=== PATIENT | female | born 1950 | race Caucasian/White ===

== ENCOUNTER 2018-05-11 13:10 | Emergency (ER) | payer OTHER ==
[~2018-05-11] VITALS: Ht 152.4 cm; Wt 58.1 kg
[~2018-05-11 13:10] MED LIST: ALBU.083IS; ALBU2SYA; ALPR.5 PO; AMOX250; ASPI325 PO; BUDE6HFA INH; CELE200 PO; CEPH250A; CIPR500 PO; CITA20 PO; Cipro500 MG PO; DOCU100 PO; DOXY100 PO; FENO145 PO; FLUSAL2505; FURO20 PO; GABA300 PO; GABA600 PO; HCT PO; HYDACE10B; HYDACE10B PO; HYDACE5 PO; HYDCHL12.5 PO; HYDMOR2 PO; IBUP800; LEVA.63IS IH; LEVA1.25 IH; LEVFLO500 PO; LISI20 PO; LOSA50 PO; LOSARTAN PO; LOSHYD100 PO; METO100 PO; METO100ER PO; MONT10T; OLME20 PO; OMEGA PO; OMEP40CA12 PO; ONDA4ODT MM; OXYACE5T PO; OXYC10ER PO; OXYC10TA19 PO; OXYC1TAB11 PO; OXYC80ER; PANT40; PANT40 PO; POTCHL10ER PO; PRAV20 PO; PRAVASTATIN PO; PRED20 PO; PROC25S PR; PROM25 PO; Pravastatin Sod40 MG PO; Prednisone20 MG PO; QUET25 PO; RXOXYACE PO; Stool Softener100 MG PO; TELM20; TELM80; TELM80 PO; ZOLP10 PO; Zofran Odt8 MG SL; Zofran8 MG PO; [UNRECOGNIZED DRUG - CODE]
[2018-05-11] MEDS ORDERED: TRAM50 PO (15:05)
[2018-05-11] MEDS ORDERED: SERT25 PO (15:07)
[2018-05-11] MEDS ORDERED: Lopressor 25 mg25 MG PO (15:07)
[2018-05-11] MEDS ORDERED: QUETIAPINE FUM150 MG PO (15:07)
[2018-05-11] MEDS ORDERED: BUSP10 PO (15:09)
[2018-05-11] MEDS ORDERED: Zantac150 MG PO (15:09)
[2018-05-11] MEDS ORDERED: LOSARTAN POTAS100 MG PO (15:09)
[2018-05-11 15:19] LABS: BASOPHILS ABSOLUTE AUTO 0.04 K/mm3 (0.00-0.23); BASOPHILS PERCENT AUTO 1 % (0-2); EOSINOPHILS PERCENT AUTO 1 % (0-6); Hematocrit 32.4 % (33.0-51.0); Hemoglobin 10.3 g/dL (11.5-16.0); IMMATURE GRAN ABSOLUTE AUTO 0.03 K/mm3 (0.00-0.10); IMMATURE GRAN PERCENT AUTO 0 % (0-1); LYMPHOCYTES ABSOLUTE AUTO 2.68 K/mm3 (0.84-5.20); LYMPHOCYTES PERCENT AUTO 31 % (21-46); MONOCYTES ABSOLUTE AUTO 0.76 K/mm3 (0.16-1.47); MONOCYTES PERCENT AUTO 9 % (4-13); Mean Corpuscular HGB 30.7 pg (26.0-34.0); Mean Corpuscular HGB Conc 31.8 g/dL (31.5-36.5); Mean Corpuscular Volume 96 fL (80-100); Mean Platelet Volume 9.1 fL (9.1-12.4); NEUTROPHILS ABSOLUTE AUTO 5.02 K/mm3 (1.96-9.15); NEUTROPHILS PERCENT AUTO 58 % (41-73); Platelet Count 265 K/mm3 (150-400); RDW Coefficient Variation 15.3 % (11.7-14.2); RDW Standard Deviation 54.4 fL (35.1-46.3); Red Blood Cell Count 3.36 M/mm3 (3.80-5.20); White Blood Cell Count 8.63 K/mm3 (4.00-11.30)
[2018-05-11 15:43] LABS: Albumin, Blood 3.3 g/dL (3.4-5.0); Albumin/Globulin Ratio 0.8 (0.8-1.8); Bilirubin, Total 0.5 mg/dL (0.1-1.0); Bun/Creatinine Ratio 13.7 (12.0-20.0); Calcium, Blood 9.3 mg/dL (8.5-10.1); Creatinine, Blood 1.17 mg/dL (0.40-1.00); Globulin, Blood 4.2 g/dL (2.2-4.0); Potassium, Blood 4.3 mmol/L (3.5-5.5); Total Protein, Blood 7.5 g/dL (6.4-8.2)
[2018-05-11] MEDS ORDERED: Bactrim Ds Tab1 EACH PO (16:42)
[2018-05-11] MEDS ORDERED: Norco 5-325 Ta1 EACH PO (16:42)
== END 2018-05-11 17:44 | disposition home or self-care (01) ==
LOC: ER 13:10
PROVIDERS: Emergency Medicine
DX: L03.317 Cellulitis of buttock (principal); J44.9 Chronic obstructive pulmonary disease, unspecified; I10 Essential (primary) hypertension; F17.210 Nicotine dependence, cigarettes, uncomplicated; Z88.5 Allergy status to narcotic agent; Z88.2 Allergy status to sulfonamides; Z79.899 Other long term (current) drug therapy
CPT/HCPCS: 36415; 72193; 80053; 85025; 87070; 87075; 87077; 87147; 87186; 87205; 96365-59; 96375-59; 99284-25; J1885; J2405; J3010; J3370; J7030; J7050; Q9967

== ENCOUNTER → 2018-05-22 | Outpatient (CLI) | payer OTHER ==
[~2018-05-22] MED LIST changes: +BUSP10 PO; +Bactrim Ds Tab1 EACH PO; +LOSARTAN POTAS100 MG PO; +Lopressor 25 mg25 MG PO; +Norco 5-325 Ta1 EACH PO; +QUETIAPINE FUM150 MG PO; +SERT25 PO; +TRAM50 PO; +Zantac150 MG PO
[2018-05-22 14:31] LABS: Appearance, Urine Clear (Clear); Bilirubin, Urine Neg (Neg); Blood, Urine Neg (Neg); Color, Urine Yellow (P-Yellow); Glucose Qualitative, Urine Neg (Neg); Ketones, Urine Neg (Neg); Leukocyte Esterase, Urine Neg (Neg); Nitrite, Urine Neg (Neg); Protein, Urine Neg (Neg); Urobilinogen, Urine NORM (Normal)
[2018-05-22 15:02] LABS: Creatinine, Urine Random 37.6 mg/dL (27.00-270.00); Protein, Urine Random 8.5 mg/dL (0.0-11.9)
== END | disposition home or self-care (01) ==
LOC: LAB 14:04 → LAB SHORT 14:04
PROVIDERS: Internal Medicine
DX: I12.9 Hypertensive chronic kidney disease with stage 1 through stage 4 chronic kidney disease, or unspecified chronic kidney disease (principal); N18.2 Chronic kidney disease, stage 2 (mild)
CPT/HCPCS: 81003; 82570; 84156

== ENCOUNTER 2018-07-05 17:27 | Observation (INO) | payer OTHER ==
[~2018-07-05] VITALS: Ht 165.1 cm; Wt 57.3 kg
[2018-07-05] MEDS ORDERED: Cetirizine HCl10 MG PO (17:42)
[2018-07-05 18:02] LABS: BASOPHILS ABSOLUTE AUTO 0.04 K/mm3 (0.00-0.23); BASOPHILS PERCENT AUTO 1 % (0-2); EOSINOPHILS ABSOLUTE AUTO 0.05 K/mm3 (0.00-0.68); EOSINOPHILS PERCENT AUTO 1 % (0-6); Hematocrit 40.3 % (33.0-51.0); Hemoglobin 13.2 g/dL (11.5-16.0); IMMATURE GRAN ABSOLUTE AUTO 0.01 K/mm3 (0.00-0.10); IMMATURE GRAN PERCENT AUTO 0 % (0-1); LYMPHOCYTES ABSOLUTE AUTO 2.87 K/mm3 (0.84-5.20); LYMPHOCYTES PERCENT AUTO 41 % (21-46); MONOCYTES ABSOLUTE AUTO 0.45 K/mm3 (0.16-1.47); MONOCYTES PERCENT AUTO 6 % (4-13); Mean Corpuscular HGB 30.7 pg (26.0-34.0); Mean Corpuscular HGB Conc 32.8 g/dL (31.5-36.5); Mean Corpuscular Volume 94 fL (80-100); Mean Platelet Volume 8.8 fL (9.1-12.4); NEUTROPHILS ABSOLUTE AUTO 3.67 K/mm3 (1.96-9.15); NEUTROPHILS PERCENT AUTO 52 % (41-73); Platelet Count 227 K/mm3 (150-400); RDW Coefficient Variation 15.3 % (11.7-14.2); RDW Standard Deviation 52.7 fL (35.1-46.3); White Blood Cell Count 7.09 K/mm3 (4.00-11.30)
[2018-07-05 18:24] LABS: Alanine Aminotransfer (ALT/SGP 17 U/L (12-78); Albumin, Blood 4.1 g/dL (3.4-5.0); Albumin/Globulin Ratio 1.1 (0.8-1.8); Alk Phos 88 U/L (50-136); Anion Gap 7 mmol/L (6-16); Aspartate Aminotrans (AST/SGOT 18 U/L (12-37); Bilirubin, Total 0.3 mg/dL (0.1-1.0); Blood Urea Nitrogen 15 mg/dL (8-24); Bun/Creatinine Ratio 14.4 (12.0-20.0); CO2, Blood 30 mmol/L (21-32); Calcium, Blood 9.4 mg/dL (8.5-10.1); Chloride, Blood 104 mmol/L (98-108); Creatinine, Blood 1.04 mg/dL (0.40-1.00); Globulin, Blood 3.9 g/dL (2.2-4.0); Glomerular Filtration Rate 56 (60-); Glucose, Blood 99 mg/dL (70-99); Potassium, Blood 3.6 mmol/L (3.5-5.5); Sodium, Blood 141 mmol/L (136-145); Troponin I <0.015 ng/mL (0.000-0.040)
[2018-07-05] MEDS ORDERED: GABA600 PO (19:48)
[2018-07-05] MEDS ORDERED: AMLO5 PO (19:51)
[2018-07-05] MEDS ORDERED: Ferrous Sulfat325 M2 PO (19:52)
[2018-07-05] MEDS ORDERED: ALBU2.5V5 NEB (20:10)
[2018-07-05] MEDS ORDERED: IPRATROPIUM BROMIDE NEB (20:12)
--- NOTE | 2018-07-06 06:40 | NUR ---
END OF SHIFT SUMMARY ASSUMED CARE OF PT FROM ED. PT TO UNIT, BP 165/85. HAS DECREASED TO MOST RECENT 128/75. PT HAS NOT REQUIRED ANY PRN BP MEDICATIONS. PT HAS REMAINED NON HYPERTENSIVE POST TRANSFER TO PCU. MRSA SWABS OBTAINED AND SENT TO LAB. VSS T/O SHIFT. PT HAS STRUGGLED WITH HEADACHE DESPITE MEDICATING WITH TYLENOL AND OXYCODONE. PT HAS BEEN ON AND OFF ASLEEP T/O SHIFT, HAS REQUIRED MULTIPLE MEDS FOR HEADACHE. CALL LIGHT WITHIN REACH. BED IN LOWEST POSITION. WILL CONTINUE TO MONITOR PT UNTIL SHIFT CHANGE.
--- NOTE | 2018-07-06 16:36 | NUR ---
SHIFT SUMMARY NO ACUTE CHANGES THIS SHIFT. PT BLOOD PRESSURE IMPROVING. PT COMPLAINS OF HEADACHE MOST OF SHIFT AND IS RECEIVING TYLENOL AND OXYCODONE FOR PAIN. DENIES N/V OR SOB. IV IS SL. PT INDEPENDENT IN ROOM WITH PERSONAL WALKER. IF PT CONTINUES TO DO WELL T/O NIGHT, PLAN IS FOR PT TO GO HOME. PT USES CALL LIGHT APPROPRIATELY. WILL CONT TO MONITOR UNTIL REPORT TO SABRA LLAMAS.
--- NOTE | 2018-07-06 17:37 | NUR ---
PT WANTING TO GO OUTSIDE WITH CAREGIVER. THIS RN EDUCATED CAREGIVER AND PT ON NO SMOKING POLICY. EDUCATED ON THE RISKS OF SMOKING AND BOTH VERBALIZED AN UNDERSTANDING.
--- NOTE | 2018-07-06 22:53 | NUR ---
ASSUMED PT CARE AT 1915 PT LYING IN BED WITH LIGHTS DIMMED D/T HEADACHE. PT STATES HER HEADACHE IS 8/10. MEDICATED WITH TYLENOL AND OXY PER ORDERS. PT IS ALERT AND ORIENTED TO PERSON, PLACE, TIME, AND SITUATION. VERY PLEASANT AND COOPERATIVE WITH CARE. BLOOD PRESSURE HAS REMAINED 150'S SYSTOLIC; PT STATES HER HEADACHE HAS BEEN BOTHERING HER FOR THE LAST COUPLE OF DAYS. REMINDED PT OF ELEVATED BP'S CAUSING THAT; DEMONSTRATED UNDERSTANDING. NO FAMILY AT BEDSIDE AT THIS TIME. PT WEARY OF LOVENOX INJECTION; EDUCATED REGARDING INDICATION; PT THEN RAISED CONCERN STATING SHE ISN'T ANY MORE ACTIVE AT HOME THAN SHE IS HERE AND MENTIONED BRINGING IT UP TO HER DOCTOR. SHE ALSO MENTIONED HER LEGS CAUSING HER MORE PROBLEMS AND WANTED TO BE SURE I WAS AWARE THAT SHE HAD RESTLESS LEG SYNDROME. PT STATES SHE DOESN'T TAKE ANYTHING MEDICATION MELARA FOR HER RLS, BUT STATED SHE WOULD BRING IT UP WITH HER DOCTOR BECAUSE THEY ARE CAUSING HER MORE PAIN AND ISSUES. CALL LIGHT LEFT WITHIN REACH; PT ABLE TO MAKE HER NEEDS KNOWN AND REPOSITION HERSELF IN BED.
[2018-07-07 04:18] LABS: Hematocrit 38.9 % (33.0-51.0); Hemoglobin 12.9 g/dL (11.5-16.0); Mean Corpuscular HGB 30.8 pg (26.0-34.0); Mean Corpuscular HGB Conc 33.2 g/dL (31.5-36.5); Mean Corpuscular Volume 93 fL (80-100); Mean Platelet Volume 9.2 fL (9.1-12.4); Platelet Count 187 K/mm3 (150-400); RDW Coefficient Variation 15.6 % (11.7-14.2); RDW Standard Deviation 53.1 fL (35.1-46.3); Red Blood Cell Count 4.19 M/mm3 (3.80-5.20)
[2018-07-07 04:35] LABS: Albumin, Blood 3.3 g/dL (3.4-5.0); Anion Gap 8 mmol/L (6-16); Blood Urea Nitrogen 37 mg/dL (8-24); Bun/Creatinine Ratio 26.6 (12.0-20.0); CO2, Blood 24 mmol/L (21-32); Calcium, Blood 8.5 mg/dL (8.5-10.1); Chloride, Blood 108 mmol/L (98-108); Creatinine, Blood 1.39 mg/dL (0.40-1.00); Glomerular Filtration Rate 40 (60-); Glucose, Blood 89 mg/dL (70-99); Phosphorus, Blood 4.4 mg/dL (2.5-4.9); Potassium, Blood 4.3 mmol/L (3.5-5.5); Sodium, Blood 140 mmol/L (136-145)
--- NOTE | 2018-07-07 05:45 | NUR ---
END OF SHIFT SUMMARY NO SIGNIFICANT CHANGES T/O NIGHT. PT CONTINUES TO C/O SEVERE 8/10 HEADACHE PAIN. MEDICATED WITH SCHEDULED APAP AND PRN OXY PER ORDERS. PT CLAIMS SHE FEELS SOME RELIEF, BUT THE HEADACHE COMES BACK WITH A "VENGEANCE". HELD HYDRALAZINE DOSE TWICE D/T SBP BEING LESS THAN 140. PT STATES OVERALL SHE FEELS BETTER AND HIS READY TO GO HOME. CALL LIGHT WITHIN REACH; ABLE TO MAKE NEEDS KNOWN. WILL CONTINUE TO MONITOR UNTIL REPORT HIS HANDED OFF TO ONCOMING RN.
--- NOTE | 2018-07-07 14:04 | NUR ---
Ann is cheerful in conversation, but states ongoing headache is bothersome. States Tylenol is not effective at all. Given narcotic pain relief as ordered PRN. She is lying in bed, room remains darkened, but she appears non-anxious, and readily engages in informal conversation with me and with her daughter. She appears not to be in distress, but in good humor. Blood pressure rechecked at this time; monitoring it closely. At this time, systolic pressure is 144 mmHg.
--- NOTE | 2018-07-07 17:15 | NUR ---
The pt is still c/o headache. States that she was up in the room walking around, doing some leg exercises and felt well, but now her headache has returned. Noted systolic blood pressure 163 just now at the time when her apresoline is scheduled, so that was given, and she will continue to be monitored. telephone report was given to MURIEL Ravi, in anticipation of transfer of pt to room 360.
--- NOTE | 2018-07-07 19:30 | NUR ---
SHIFT SUMMARY PATIENT TRANSFERED FROM PCU. A&O, INDEPENDENT IN THE ROOM. C/O 09/16 HEADACHE PAIN. RN MEDICATED PER E APR. CALL LIGHT WITHIN REACH. RN AGREES WITH ASSESSMENT OF PCU NURSE. REPORT GIVEN TO ONCOMING RN.
--- NOTE | 2018-07-08 06:14 | NUR ---
NOC SHIFT SUMMARY PT IS PLEASANT AND COOPERATIVE WITH CARE THIS NIGHT. SHE HAS COMPLAINED OF A HEADACHE 09/16 THAT HAS BEEN ONGOING SHE STATES SINCE SHE WAS ADMITTED. TREATED PER EMAR. NAUSEA ALSO TREATED PER EMAR. PT CURRENTLY SLEEPING AND APPEARS IN NO ACUTE DISTRES. DAUGHTER IN ROOM WITH HER. VSS. WILL CONTINUE TO MONITOR.
[2018-07-08] MEDS ORDERED: METO5A PO (10:25)
[2018-07-08] MEDS ORDERED: HYDR10 PO (10:26)
[2018-07-08] MEDS ORDERED: OXYC5 PO (10:27)
--- NOTE | 2018-07-08 10:59 | NUR ---
PT DISCHARGED PT DISCHARGED IN STABLE CONDITION WITH VSS. PT EDUCATED ON DC INSTRUCTIONS. PT DENIES FURTHER NEED FOR INSTRUCTION. PT WHEELED OUT BY MURIEL LEVIN & DRIVEN HOME BY DAUGHTER. SCRIPT SENT WITH PT.
== END 2018-07-08 10:59 | disposition home or self-care (01) ==
LOC: ER 17:27 → PCU 17:28 → MEDS 07-07 17:42 → ENPENDDIS 07-08 10:00 → MEDS 07-08 10:59
PROVIDERS: Emergency Medicine; Internal Medicine; ADMIT Internal Medicine
DX: I16.0 Hypertensive urgency (principal); I12.9 Hypertensive chronic kidney disease with stage 1 through stage 4 chronic kidney disease, or unspecified chronic kidney disease; N18.3 Chronic kidney disease, stage 3 (moderate); I67.9 Cerebrovascular disease, unspecified; J44.9 Chronic obstructive pulmonary disease, unspecified; I25.10 Atherosclerotic heart disease of native coronary artery without angina pectoris; E78.5 Hyperlipidemia, unspecified; E03.9 Hypothyroidism, unspecified; K21.9 Gastro-esophageal reflux disease without esophagitis; F17.210 Nicotine dependence, cigarettes, uncomplicated; F41.1 Generalized anxiety disorder; M79.7 Fibromyalgia; Z79.01 Long term (current) use of anticoagulants; Z79.899 Other long term (current) drug therapy; Z88.2 Allergy status to sulfonamides; Z88.5 Allergy status to narcotic agent; Z88.1 Allergy status to other antibiotic agents
CPT/HCPCS: 36415; 70450; 71046; 80053; 80069; 84443; 84484; 85025; 85027; 85651; 87081; 93005; 93010; 96372; 96374; 96375; 96376; 97162; 97530; 99285-25; G0378; J0360; J1200; J1650; J2405; J2765; J2920; J3010

== ENCOUNTER 2019-01-29 14:25 | Observation (INO) | payer OTHER ==
[~2019-01-29] VITALS: Ht 152.4 cm; Wt 59.0 kg
[~2019-01-29 14:25] MED LIST changes: +ALBU2.5V5 NEB; +AMLO5 PO; +Cetirizine HCl10 MG PO; +Ferrous Sulfat325 M2 PO; +HYDR10 PO; +IPRATROPIUM BROMIDE NEB; +METO5A PO; +OXYC5 PO
[2019-01-29] MEDS ORDERED: OMEPRAZOLE20 MG PO ×2 (15:08→20:01)
[2019-01-29] MEDS ORDERED: ONDA4 PO ×2 (15:09→20:08)
[2019-01-29 15:34] LABS: BASOPHILS ABSOLUTE AUTO 0.06 K/mm3 (0.00-0.23); BASOPHILS PERCENT AUTO 1 % (0-2); EOSINOPHILS ABSOLUTE AUTO 0.22 K/mm3 (0.00-0.68); EOSINOPHILS PERCENT AUTO 3 % (0-6); Hematocrit 40.3 % (33.0-51.0); Hemoglobin 12.9 g/dL (11.5-16.0); IMMATURE GRAN ABSOLUTE AUTO 0.03 K/mm3 (0.00-0.10); IMMATURE GRAN PERCENT AUTO 0 % (0-1); LYMPHOCYTES ABSOLUTE AUTO 3.21 K/mm3 (0.84-5.20); LYMPHOCYTES PERCENT AUTO 37 % (21-46); MONOCYTES PERCENT AUTO 8 % (4-13); Mean Corpuscular HGB 31.7 pg (26.0-34.0); Mean Corpuscular Volume 99 fL (80-100); Mean Platelet Volume 9.1 fL (9.1-12.4); NEUTROPHILS ABSOLUTE AUTO 4.36 K/mm3 (1.96-9.15); NEUTROPHILS PERCENT AUTO 51 % (41-73); Platelet Count 303 K/mm3 (150-400); RDW Coefficient Variation 15.2 % (11.7-14.2); RDW Standard Deviation 56.4 fL (35.1-46.3); Red Blood Cell Count 4.07 M/mm3 (3.80-5.20); White Blood Cell Count 8.58 K/mm3 (4.00-11.30)
[2019-01-29 15:48] LABS: International Normalized Ratio 0.97; Prothrombin Time Results 10.3 Sec (9.7-11.5)
[2019-01-29 15:54] LABS: Alanine Aminotransfer (ALT/SGP 14 U/L (12-78); Albumin, Blood 3.6 g/dL (3.4-5.0); Albumin/Globulin Ratio 0.9 (0.8-1.8); Alk Phos 93 U/L (50-136); Anion Gap 6 mmol/L (6-16); Aspartate Aminotrans (AST/SGOT 16 U/L (12-37); Bilirubin, Total 0.2 mg/dL (0.1-1.0); Blood Urea Nitrogen 19 mg/dL (8-24); CO2, Blood 25 mmol/L (21-32); Calcium, Blood 8.9 mg/dL (8.5-10.1); Chloride, Blood 107 mmol/L (98-108); Creatinine, Blood 1.12 mg/dL (0.40-1.00); Globulin, Blood 3.9 g/dL (2.2-4.0); Glomerular Filtration Rate 51 (60-); Glucose, Blood 111 mg/dL (70-99); Potassium, Blood 4.5 mmol/L (3.5-5.5); Sodium, Blood 138 mmol/L (136-145); Total Protein, Blood 7.5 g/dL (6.4-8.2); Troponin I <0.015 ng/mL (0.000-0.040)
[2019-01-29] MEDS ORDERED: AMLODIPINE BESYL5 MG PO (17:00)
[2019-01-29] MEDS ORDERED: Pravachol40 MG PO (17:00)
[2019-01-29] MEDS ORDERED: METOPROLOL TART25 MG PO (17:01)
[2019-01-29] MEDS ORDERED: ZYRTEC10 M2 PO (17:01)
[2019-01-29] MEDS ORDERED: ACYC800 PO (19:43)
[2019-01-29] MEDS ORDERED: ALBU2.5V5 INH (19:45)
--- NOTE | 2019-01-29 19:45 | NUR ---
ADMIT NOTE RECEIVED REPORT FROM MURIEL HUNTER IN ED. PT TO ROOM VIA DUSTIN AT 1900. PT ORIENTED TO ROOM AND CALL LIGHT. PT EDUCATED ON HIGH FALL RISK, THE USE OF THE BED ALARM AND CALL LIGHT. PT TRANSFERS SBA TO BED. MRSA CLEARANCE SWABS COLLECTED, AND SENT TO LAB. VSS. REPORT GIVEN TO MAIKEL LLAMAS.
[2019-01-29] MEDS ORDERED: Ipratropium Bro30 ML INH (19:58)
[2019-01-29] MEDS ORDERED: Zantac150 MG PO (20:06)
[2019-01-30 04:45] LABS: Hematocrit 37.2 % (33.0-51.0); Hemoglobin 12.1 g/dL (11.5-16.0); Mean Corpuscular HGB 31.9 pg (26.0-34.0); Mean Corpuscular HGB Conc 32.5 g/dL (31.5-36.5); Mean Corpuscular Volume 98 fL (80-100); Mean Platelet Volume 9.2 fL (9.1-12.4); Platelet Count 249 K/mm3 (150-400); RDW Coefficient Variation 15.2 % (11.7-14.2); RDW Standard Deviation 54.8 fL (35.1-46.3); Red Blood Cell Count 3.79 M/mm3 (3.80-5.20); White Blood Cell Count 7.85 K/mm3 (4.00-11.30)
[2019-01-30 05:13] LABS: Bun/Creatinine Ratio 19.3 (12.0-20.0); Calcium, Blood 8.7 mg/dL (8.5-10.1); Creatinine, Blood 1.09 mg/dL (0.40-1.00); Potassium, Blood 4.1 mmol/L (3.5-5.5)
--- NOTE | 2019-01-30 05:32 | NUR ---
SHIFT SUMARY PT SLEEPING IN ROOM COMFORTABL AT THIS TIME. NO ACUTE CHNAGES IN STATUS SINCE ARRIVAL FROM ED. PT HAS SLEPT WELL T/O NIGHT AND USED CALL LIGHT APPROPRIATELY. DENIED CP OR SOB. RESP EVEN UNLABORED ON RA W/ SATS >92%. PT REPORTED PAIN TO R EAR, PT MEDICATED PER EMAR FOR PAIN AND GIVEN K PAD FOR HEAT TO EAR AND COMFORT. DENIES OTHER NEEDS. MRSA CLEARENCE SWABS SENT. CALL LIGHT IN REACH.
--- NOTE | 2019-01-30 07:00 | NUR ---
REPORT AND WALKING ROUNDS WITH AYANA LLAMAS. ASSUMING PT CARE.
--- NOTE | 2019-01-30 07:30 | NUR ---
VSS. ASSESSMENT CHARTED. PT NPO AT THIS TIME. AWAITING DR CARLOS SHIELDS. CALL LIGHT IN REACH. PT ALERT AND ORIENTED. ABLE TO GET TO RR WITH MINIMAL TO NO ASSISTANCE.
--- NOTE | 2019-01-30 07:40 | NUR ---
DR GONZALEZ TO ROOM. PLAN TO STOP BETABLOCKERS, GET ECHO DONE, GET PT SET UP FOR CARDIAC MONITORING. NO PACEMAKER PLACEMENT NEEDED AT THIS TIME. PT NEEDS TO FOLLOWUP WITH DR GONZALEZ IN CLINIC. PT ABLE TO EAT. BREAKFAST PROVIDED.
--- NOTE | 2019-01-30 09:00 | NUR ---
DR RO TO ROOM.
--- NOTE | 2019-01-30 09:38 | NUR ---
PT UP TO RR INDEPENDENTLY. PT MEDICATED PER EMAR WITH SCHEDULED MEDS AND PRN PAIN MEDS (DUE TO C/O HEADACHE).
--- NOTE | 2019-01-30 13:30 | NUR ---
PHYSICAL THERAPY TO ROOM.
--- NOTE | 2019-01-30 14:58 | NUR ---
PT MEDICATED WITH SCHEDULED MEDS AND PRN MEDS. DOOR SHUT FOR PT PRIVACY AND NOISE REDUCTION. CALL LIGHT IN REACH.
--- NOTE | 2019-01-30 15:30 | NUR ---
[facility] STAFF TO ROOM FOR ECHO.
--- NOTE | 2019-01-30 16:12 | NUR ---
PT TALKING ON PHONE. DENIES NEEDS. VSS.
--- NOTE | 2019-01-30 16:16 | NUR ---
Echocardiogram completed.
--- NOTE | 2019-01-30 17:09 | NUR ---
SHIFT SUMMARY PT REMAINED ALERT AND ORIENTED THROUGHOUT SHIFT. VSS STABLE. PT TOLERATING DIET. PT HAD MINIMAL DIZZINESS TODAY WITH MOVEMENT. ABLE TO COMMUNICATE NEEDS AND USE CALL LIGHT APPROPRIATELY. PT STATES INTERMITTENT LOWER ABD CRAMPING THAT RELIEVES SPONTANEOUSLY TODAY. PT ECHO DONE THIS AFTERNOON SHOWED NO SIGNIFICANT CHANGE FROM PREVIOUS. PER DR GONZALEZ PLAN TO DC PT WITH ZIO MONITORING DEVICE. PT STILL C/O PAIN TO HEAD AND RIGHT EAR. PAIN MANAGED ADEQUATELY WITH OXYCODONE. WILL REPORT TO ONCOMING SHIFT. WILL CONTINUE TO ADDRESS PT NEEDS AND MONITOR UNTIL SHIFT CHANGE.
--- NOTE | 2019-01-30 18:20 | NUR ---
PT C/O NAUSEA. MEDICATED WITH ZOFRAN PER EMAR.
--- NOTE | 2019-01-30 22:01 | NUR ---
ASSUMED CARE APPROXIMATELY 1900; PT A&O; VSS; PT ON RA; O2 SATS>94; PT CALM AND COOPERATIVE W/ CARE; C/O EAR AND SIDE OF FACE PAIN; MEDICATED PER EMAR; HEAT PAD OFFERED; PT DENIES CHEST PAIN; DENIES NEEDS AT THIS TIME; CALL LIGHT IN REACH; BED IN LOWEST POSITION; WILL CONTINUE TO MONITOR CLOSELY
--- NOTE | 2019-01-31 07:52 | NUR ---
SHIFT SUMMARY PT A&O; COMPLIANT W/ CARE; PT ON RA; O2 SATS >93; DENIES CHEST PAIN; C/O R EAR AND R FACE PAIN WELL CHRONIC RESTLESS LEG SYNDROME; PT REPOSITIONED AND MEDICATED PER EMAR; PT SLEPT WELL IN BETWEEN INTERVENTIONS; CALL LIGHT IN REACH; BED IN LOWEST POSITION; REPORT GIVEN TO DAY SHIFT RN
--- NOTE | 2019-01-31 11:27 | NUR ---
Called nursing supervisor felling bucking Bang Moe to request set up for ZIO patch before discharge.
[2019-01-31] MEDS ORDERED: GABA300 PO (12:25)
[2019-01-31] MEDS ORDERED: DOXY100 PO (12:27)
[2019-01-31] MEDS ORDERED: MECL12.5 PO (12:29)
[2019-01-31] MEDS ORDERED: Ocuflox5 ML RIGHTEAR (12:33)
[2019-01-31] MEDS ORDERED: PRED20 PO (12:34)
--- NOTE | 2019-01-31 14:59 | NUR ---
DISCHARGE SUMMARY PT A&Ox4. CALM AND COOPERATIVE WITH CARE. ANXIOUS AT TIMES. PT RESTING IN BED DURING SHIFT, APPEARS TO BE SLEEPING INTERMITTENTLY. UP WITH SBA IN ROOM. PT REPORTING RIGHT EARS AND JAW PAIN AND CHRONIC LEG PAIN, MEDICATED x1 WITH ROXICODONE WITH POSITIVE RESULTS. PT DENEIS SOB AND NAUSEA. PT REPORT DIZZINESS THIS AM, MEDICATED WITH SCHEDULE ANTIVERT WITH POSITIVE RESULTS. HR 50-70'S DURING SHIFT. FEEDER WORKER POWER UNIT OPERATOR TO ROOM TO PLACE ZIO PATCH, EDUCATED ON HOW TO CARE FOR AT HOMES. VSS. NO OTHER ACUTE CHANGES NOTED. PT EDUCATED ON DISCHARGE INSTRUCTIONS, MEDICTIONS AND FOLLOW UP APPOINTMENTS. PT EDUCATED ON SMOKING CESSATION AND HOME SAFETY. PRESCRIPTIONS FAXED TO [facility] PER PT REQUEST. PT LEFT ROOM AT 1455 VIA WHEELCHAIR. PT STABLE UPON DISCAHRGE.
== END 2019-01-31 14:55 | disposition home or self-care (01) ==
LOC: ER 14:25 → PCU 16:58 → ER 16:58 → PCU 16:58
PROVIDERS: Emergency Medicine; ADMIT Internal Medicine
DX: R00.1 Bradycardia, unspecified (principal); T50.905A Adverse effect of unspecified drugs, medicaments and biological substances, initial encounter; R55 Syncope and collapse; R07.89 Other chest pain; M79.7 Fibromyalgia; J44.9 Chronic obstructive pulmonary disease, unspecified; G25.81 Restless legs syndrome; I25.10 Atherosclerotic heart disease of native coronary artery without angina pectoris; F17.200 Nicotine dependence, unspecified, uncomplicated; I12.9 Hypertensive chronic kidney disease with stage 1 through stage 4 chronic kidney disease, or unspecified chronic kidney disease; N18.9 Chronic kidney disease, unspecified; H60.91 Unspecified otitis externa, right ear; Z74.09 Other reduced mobility; Z90.49 Acquired absence of other specified parts of digestive tract; Z90.710 Acquired absence of both cervix and uterus; Z96.641 Presence of right artificial hip joint; Z96.659 Presence of unspecified artificial knee joint; Z88.1 Allergy status to other antibiotic agents; Z88.2 Allergy status to sulfonamides; Z88.5 Allergy status to narcotic agent; Z88.8 Allergy status to other drugs, medicaments and biological substances; Z79.899 Other long term (current) drug therapy
CPT/HCPCS: 36415; 71045; 80048; 80053; 84443; 84484; 85025; 85027; 85610; 87081; 93005; 93010; 93306; 94640; 94760; 96365; 96366; 96375; 97116; 97162; 97530; 99285-25; G0378; J0690; J1170; J1644; J1956; J2250; J2405; J3010; J7030; J7040; J7120; J7512

== ENCOUNTER 2019-02-18 09:50 | Emergency (ER) | payer OTHER ==
[~2019-02-18] VITALS: Ht 152.4 cm; Wt 56.7 kg
[~2019-02-18 09:50] MED LIST changes: +ACYC800 PO; +ALBU2.5V5 INH; +AMLODIPINE BESYL5 MG PO; +Ipratropium Bro30 ML INH; +MECL12.5 PO; +METOPROLOL TART25 MG PO; +OMEPRAZOLE20 MG PO; +ONDA4 PO; +Ocuflox5 ML RIGHTEAR; +Pravachol40 MG PO; +ZYRTEC10 M2 PO
[2019-02-18 10:09] LABS: BASOPHILS ABSOLUTE AUTO 0.03 K/mm3 (0.00-0.23); BASOPHILS PERCENT AUTO 1 % (0-2); EOSINOPHILS ABSOLUTE AUTO 0.01 K/mm3 (0.00-0.68); EOSINOPHILS PERCENT AUTO 0 % (0-6); Hemoglobin 13.2 g/dL (11.5-16.0); IMMATURE GRAN ABSOLUTE AUTO 0.01 K/mm3 (0.00-0.10); IMMATURE GRAN PERCENT AUTO 0 % (0-1); LYMPHOCYTES ABSOLUTE AUTO 1.43 K/mm3 (0.84-5.20); LYMPHOCYTES PERCENT AUTO 22 % (21-46); MONOCYTES ABSOLUTE AUTO 0.38 K/mm3 (0.16-1.47); MONOCYTES PERCENT AUTO 6 % (4-13); Mean Corpuscular HGB 31.8 pg (26.0-34.0); Mean Corpuscular Volume 96 fL (80-100); Mean Platelet Volume 8.9 fL (9.1-12.4); NEUTROPHILS ABSOLUTE AUTO 4.56 K/mm3 (1.96-9.15); NEUTROPHILS PERCENT AUTO 71 % (41-73); Platelet Count 260 K/mm3 (150-400); RDW Coefficient Variation 14.6 % (11.7-14.2); Red Blood Cell Count 4.15 M/mm3 (3.80-5.20); White Blood Cell Count 6.42 K/mm3 (4.00-11.30)
[2019-02-18 10:22] LABS: Alanine Aminotransfer (ALT/SGP 20 U/L (12-78); Albumin, Blood 3.7 g/dL (3.4-5.0); Albumin/Globulin Ratio 0.9 (0.8-1.8); Anion Gap 5 mmol/L (6-16); Aspartate Aminotrans (AST/SGOT 26 U/L (12-37); Bilirubin, Total 0.4 mg/dL (0.1-1.0); Blood Urea Nitrogen 9 mg/dL (8-24); Bun/Creatinine Ratio 9.3 (12.0-20.0); CO2, Blood 26 mmol/L (21-32); Calcium, Blood 9.1 mg/dL (8.5-10.1); Chloride, Blood 109 mmol/L (98-108); Creatinine, Blood 0.97 mg/dL (0.40-1.00); Globulin, Blood 3.9 g/dL (2.2-4.0); Glomerular Filtration Rate >60 (60-); Glucose, Blood 120 mg/dL (70-99); Potassium, Blood 4.2 mmol/L (3.5-5.5); Sodium, Blood 140 mmol/L (136-145); Total Protein, Blood 7.6 g/dL (6.4-8.2)
[2019-02-18 10:25] LABS: Alk Phos 86 U/L (50-136); Troponin I <0.015 ng/mL (0.000-0.040)
[2019-02-18] MEDS ORDERED: Ultram50 MG PO (12:37)
[2019-02-18] MEDS ORDERED: ONDA4ODT MM (12:37)
== END 2019-02-18 13:02 | disposition home or self-care (01) ==
LOC: ER 09:50
PROVIDERS: Emergency Medicine
DX: K52.9 Noninfective gastroenteritis and colitis, unspecified (principal); I12.9 Hypertensive chronic kidney disease with stage 1 through stage 4 chronic kidney disease, or unspecified chronic kidney disease; N18.3 Chronic kidney disease, stage 3 (moderate); J44.9 Chronic obstructive pulmonary disease, unspecified; I25.2 Old myocardial infarction; F17.200 Nicotine dependence, unspecified, uncomplicated; Z79.899 Other long term (current) drug therapy; Z79.51 Long term (current) use of inhaled steroids
CPT/HCPCS: 74176; 80053; 83690; 84484; 85025; 93005; 93010; 96361; 96374; 96375; 99284-25; J1170; J2405; J3010; J7030

== ENCOUNTER 2019-02-18 20:43 | Emergency (ER) | payer OTHER ==
[~2019-02-18] VITALS: Ht 152.4 cm; Wt 56.7 kg
[~2019-02-18 20:43] MED LIST changes: +Ultram50 MG PO
== END 2019-02-19 00:25 | disposition home or self-care (01) ==
LOC: ER 20:43
DX: K52.9 Noninfective gastroenteritis and colitis, unspecified (principal); I71.4 Abdominal aortic aneurysm, without rupture; Z88.1 Allergy status to other antibiotic agents; Z88.5 Allergy status to narcotic agent; Z88.2 Allergy status to sulfonamides; Z88.8 Allergy status to other drugs, medicaments and biological substances; Z79.899 Other long term (current) drug therapy; Z79.52 Long term (current) use of systemic steroids; J44.9 Chronic obstructive pulmonary disease, unspecified; I12.9 Hypertensive chronic kidney disease with stage 1 through stage 4 chronic kidney disease, or unspecified chronic kidney disease; N18.3 Chronic kidney disease, stage 3 (moderate); I25.2 Old myocardial infarction; M19.90 Unspecified osteoarthritis, unspecified site; F17.210 Nicotine dependence, cigarettes, uncomplicated
CPT/HCPCS: 36415; 76775; 96361; 96374; 96375; 99284-25; A9270-GY; J1885; J2405; J7030

== ENCOUNTER 2019-04-02 19:25 | Inpatient (IN) | payer OTHER ==
[~2019-04-02] VITALS: Ht 152.4 cm; Wt 58.1 kg
[2019-04-02] MEDS ORDERED: ALBU90OI INH (19:58)
[2019-04-02] MEDS ORDERED: Duoneb 2.5-0.5 M3 ML INH (20:00)
[2019-04-02] MEDS ORDERED: Pravachol40 MG PO (20:01)
[2019-04-02] MEDS ORDERED: TRAM50 PO (20:01)
[2019-04-02] MEDS ORDERED: Aspirin EC81 MG PO (20:02)
[2019-04-02 20:49] LABS: BASOPHILS ABSOLUTE AUTO 0.03 K/mm3 (0.00-0.23); BASOPHILS PERCENT AUTO 0 % (0-2); EOSINOPHILS ABSOLUTE AUTO 0.07 K/mm3 (0.00-0.68); EOSINOPHILS PERCENT AUTO 1 % (0-6); Hematocrit 38.2 % (33.0-51.0); Hemoglobin 12.4 g/dL (11.5-16.0); IMMATURE GRAN ABSOLUTE AUTO 0.01 K/mm3 (0.00-0.10); IMMATURE GRAN PERCENT AUTO 0 % (0-1); LYMPHOCYTES ABSOLUTE AUTO 3.24 K/mm3 (0.84-5.20); LYMPHOCYTES PERCENT AUTO 47 % (21-46); MONOCYTES ABSOLUTE AUTO 0.57 K/mm3 (0.16-1.47); MONOCYTES PERCENT AUTO 8 % (4-13); Mean Corpuscular HGB 32.5 pg (26.0-34.0); Mean Corpuscular HGB Conc 32.5 g/dL (31.5-36.5); Mean Corpuscular Volume 100 fL (80-100); Mean Platelet Volume 8.7 fL (9.1-12.4); NEUTROPHILS ABSOLUTE AUTO 2.94 K/mm3 (1.96-9.15); NEUTROPHILS PERCENT AUTO 43 % (41-73); Platelet Count 250 K/mm3 (150-400); RDW Coefficient Variation 15.2 % (11.7-14.2); RDW Standard Deviation 56.3 fL (35.1-46.3); Red Blood Cell Count 3.82 M/mm3 (3.80-5.20); White Blood Cell Count 6.86 K/mm3 (4.00-11.30)
[2019-04-02 21:09] LABS: Alanine Aminotransfer (ALT/SGP 14 U/L (12-78); Albumin, Blood 3.8 g/dL (3.4-5.0); Albumin/Globulin Ratio 1.2 (0.8-1.8); Alk Phos 82 U/L (50-136); Anion Gap 1 mmol/L (6-16); Aspartate Aminotrans (AST/SGOT 13 U/L (12-37); Bilirubin, Total 0.3 mg/dL (0.1-1.0); Blood Urea Nitrogen 26 mg/dL (8-24); Bun/Creatinine Ratio 26.9 (12.0-20.0); CO2, Blood 29 mmol/L (21-32); Calcium, Blood 9.2 mg/dL (8.5-10.1); Chloride, Blood 107 mmol/L (98-108); Creatinine, Blood 0.97 mg/dL (0.40-1.00); Globulin, Blood 3.3 g/dL (2.2-4.0); Glomerular Filtration Rate >60 (60-); Glucose, Blood 101 mg/dL (70-99); Potassium, Blood 4.4 mmol/L (3.5-5.5); Sodium, Blood 137 mmol/L (136-145); Total Protein, Blood 7.1 g/dL (6.4-8.2)
[2019-04-02 21:10] LABS: Source, Urine Catheter
[2019-04-02 21:15] LABS: Bilirubin, Urine Neg (Neg); Blood, Urine Neg (Neg); Glucose Qualitative, Urine Neg (Neg); Ketones, Urine Neg (Neg); Leukocyte Esterase, Urine 1+ (Neg); Nitrite, Urine Pos (Neg); Protein, Urine Neg (Neg); Specific Gravity, Urine 1.015 (1.003-1.022); Urobilinogen, Urine NORM (Normal)
[2019-04-02 21:20] LABS: Amorphous Light (0-Heavy); Appearance, Urine Clear (Clear); Bacteria Many /hpf; Color, Urine Pale Yellow (P-Yellow); Red Blood Cells, Urine 0-2 /hpf (0-2); Squamous Epithelial Cells Rare /hpf (Few)
--- NOTE | 2019-04-02 23:31 | NUR ---
ADMIT TO SURGICAL UNIT PT ARRIVED FROM ED TO UNIT AT 2255 TODAY. IS A/OX4 W/VSS. ABLE TO ASSIST SOME W/REPOSITIONING. DENIES SOB, CHEST PAIN, N/V, OR DYSPNEA. RYAN WRAP TO RLE C/D/I. TELE IN PLACE READING SR AT 71- PER TELE. CURRENTLY RESTING IN BED WITH CALL LIGHT IN REACH W/ RLE ELEVATED.
--- NOTE | 2019-04-03 04:36 | NUR ---
SHIFT SUMMARY PT A/OX4 WITH VSS. HAS RLE ELEVATED WITH SOFT CAST/RYAN WRAP IN PLACE. NPO SINCE 0000 TODAY. PAIN MANAGED PER EMAR AND FREQUENT REPOSITIONING. IS PLEASANT AND COOPERATIVE. IS CURRENTLY RESTING IN BED WITH CALL LIGHT IN REACH. WILL CONT TO MONITOR AND GIVE REPORT TO ONCOMING RN.
--- NOTE | 2019-04-03 13:43 | NUR ---
permission for care given to student teaching coordinator on 03-03-2019.
--- NOTE | 2019-04-03 20:07 | NUR ---
SHIFT SUMMARY PT A&OX4, VSS, SPLINT/RYAN WRAP RLE, ELEVATED. PAIN MANAGED PER EMAR. RAJESH PO, DENIES N&V. BEDREST. WANG IN PLACE, STAT LOCK ON, OFF FLOOR. PLAN IS NPO AT MIDNIGHT FOR SURGERY TOMORROW. REPORT GIVEN TO SABRA LLAMAS.
--- NOTE | 2019-04-04 06:00 | NUR ---
SHIFT SUMMARY NO ACUTE CHANGES THIS SHIFT, PT A/OX4 W/VSS AT BASELINE. RLE ELEVATED T/O SHIFT WITH ICE THERAPY TOLERATED AND RYAN WRAP IN PLACE. PAIN MANAGED PER EMAR AND FREQUENT REPOSITIONING. WANG IN PLACE AND DRAINING YELLOW URINE. NPO SINCE MIDNIGHT. PLAN FOR SURGERY TODAY. WILL CONT TO MONITOR AND GIVE REPORT TO ONCOMING.
[2019-04-04 06:06] LABS: CHOL/HDL RATIO 2.9; Cholesterol 152 mg/dL (50-200); HDL Cholesterol 53 mg/dL (>39); LDL/HDL RATIO 1.1; Low Density Lipoprotein Chol 60 mg/dL (0-110); Triglycerides 196 mg/dL (30-160); Very Low Density Lipoprot Chol 39 mg/dL (6-32)
--- NOTE | 2019-04-04 07:27 | NUR ---
pt laying on her side asked if we could give her pain meds together po and iv last dose this am around 0600 pt has ice to leg pt can wiggle toes warm to the touch elev on pillows pt is npo for surg today
--- NOTE | 2019-04-04 11:43 | NUR ---
dr velazquez by to see pt
--- NOTE | 2019-04-04 12:10 | NUR ---
pt transported to day surg via bed
--- NOTE | 2019-04-04 12:52 | NUR ---
PT TRANSPORTED TO [facility]. AGREES WITH PLANNED PROCEDURE. TEARFUL AT TIMES.
--- NOTE | 2019-04-04 16:45 | NUR ---
PT ARRIVED BACK TO ROOM 227 FROM PACU S/P R TIB/FIB FX WITH EXTERNAL FIXATOR WITH RYAN WRAP C/D/I NO NUMBNESS OR TINGLING PT REPORTS PAIN 9/10 ELEV ON BLANKET THEN ONTO PILLOW CAN WIGGLE TOES WARM TO THE TOUCH PT REPORTS PAIN TO HER LOWER BACK WILL PLACE PILLOWS BEHIND NO NAUSEA REQ WATER ONLY
--- NOTE | 2019-04-04 18:22 | NUR ---
PT HAS SOME OOZING TO THE KNEE ON HER EXTERNAL FIXATOR ELEV ON PILLOW
[2019-04-05 05:39] LABS: BASOPHILS ABSOLUTE AUTO 0.02 K/mm3 (0.00-0.23); BASOPHILS PERCENT AUTO 0 % (0-2); EOSINOPHILS PERCENT AUTO 0 % (0-6); Hematocrit 30.4 % (33.0-51.0); Hemoglobin 10.1 g/dL (11.5-16.0); IMMATURE GRAN ABSOLUTE AUTO 0.01 K/mm3 (0.00-0.10); IMMATURE GRAN PERCENT AUTO 0 % (0-1); LYMPHOCYTES ABSOLUTE AUTO 1.47 K/mm3 (0.84-5.20); LYMPHOCYTES PERCENT AUTO 19 % (21-46); MONOCYTES ABSOLUTE AUTO 0.63 K/mm3 (0.16-1.47); MONOCYTES PERCENT AUTO 8 % (4-13); Mean Corpuscular HGB 32.4 pg (26.0-34.0); Mean Corpuscular HGB Conc 33.2 g/dL (31.5-36.5); Mean Platelet Volume 8.8 fL (9.1-12.4); NEUTROPHILS ABSOLUTE AUTO 5.78 K/mm3 (1.96-9.15); NEUTROPHILS PERCENT AUTO 73 % (41-73); Platelet Count 205 K/mm3 (150-400); RDW Standard Deviation 53.8 fL (35.1-46.3); Red Blood Cell Count 3.12 M/mm3 (3.80-5.20); White Blood Cell Count 7.91 K/mm3 (4.00-11.30)
[2019-04-05 05:49] LABS: Mean Corpuscular Volume 97 fL (80-100)
[2019-04-05 05:57] LABS: Anion Gap 6 mmol/L (6-16); Blood Urea Nitrogen 20 mg/dL (8-24); Bun/Creatinine Ratio 21.9 (12.0-20.0); CO2, Blood 25 mmol/L (21-32); Chloride, Blood 107 mmol/L (98-108); Creatinine, Blood 0.91 mg/dL (0.40-1.00); Glomerular Filtration Rate >60 (60-); Glucose, Blood 110 mg/dL (70-99); Potassium, Blood 4.2 mmol/L (3.5-5.5); Sodium, Blood 138 mmol/L (136-145)
--- NOTE | 2019-04-05 06:46 | NUR ---
SUMMARY PT VERB ADEQUATE PAIN CONTROL.LIGHT BLEEDING AT PIN SITES. WIGGLES TOES WITHOUT DIFF.NEEDS ENC AND REASSURANCE.
--- NOTE | 2019-04-05 19:24 | NUR ---
summary NO ACUTE CHANGES T/O SHIFT. MEDICATED PER ORDERS FOR PAIN T/O DAY. PT'S WOUND OOZED T/O DAY. DISCUSSED W/DR CANDELARIO AND DR ABEBE. NO NEW ORDERS. LOVENOX GIVEN AFTER DISCUSSING W/DR ABEBE WHO ADVISED NOT TO HOLD. PLAN TO DC TO SNF TOMORROW. CALL LIGHT IN REACH.
--- NOTE | 2019-04-06 07:32 | NUR ---
SUMMARY PT REPOSITIONS SELF IN BED.AND SHUFFLES ICE PACKS.REQUIRES PO AND IV PAIN MEDS. NO C/O NAUSEA. WANG PATENT. PLANS FOR REMOVAL TODAY.UNABLE TO GIVE MOM PT REPORTS HAS SEEN DR MONTIEL FOR KIDNEY FAILURE.ALTHOUGH LABS DO NOT SPECIFICALLY TELL ME THIS. OFFERED SUPPOS. PT REFUSED STATED SHE PLATER BARREL FEEL SHE IS JUST RIGHT THERE FAR READYNESS FOR BM AND WISHES BSC TO BE HER P.T. EFFORT THIS AM.DAY RN AWARE.
--- NOTE | 2019-04-06 11:22 | NUR ---
pt refusing suppository at this time
--- NOTE | 2019-04-06 15:38 | NUR ---
PT LEFT UNIT VIA GURNEY ACCOMPANIED BY TRANSPORT TO GO TO [facility] REPORT CALLED TO [facility].
== END 2019-04-06 15:40 | DRG 494 ==
LOC: ER 19:25 → SURS 21:39
PROVIDERS: Emergency Medicine; Internal Medicine Cardiovascular Disease; Orthopaedic Surgery; ADMIT Internal Medicine
PROC: 0QSJ35Z Reposition Right Fibula with External Fixation Device, Percutaneous Approach (ICD-10-PCS; 2019-04-04)
PROC: 0QSG35Z Reposition Right Tibia with External Fixation Device, Percutaneous Approach (ICD-10-PCS; principal; 2019-04-04 12:45)
DX: S82.301A Unspecified fracture of lower end of right tibia, initial encounter for closed fracture (principal); S82.401A Unspecified fracture of shaft of right fibula, initial encounter for closed fracture; W19.XXXA Unspecified fall, initial encounter; Y92.009 Unspecified place in unspecified non-institutional (private) residence as the place of occurrence of the external cause; S82.891A Other fracture of right lower leg, initial encounter for closed fracture; E78.5 Hyperlipidemia, unspecified; I67.9 Cerebrovascular disease, unspecified; I71.4 Abdominal aortic aneurysm, without rupture; R00.1 Bradycardia, unspecified; J44.9 Chronic obstructive pulmonary disease, unspecified; G25.81 Restless legs syndrome; M79.7 Fibromyalgia; F60.9 Personality disorder, unspecified; I25.10 Atherosclerotic heart disease of native coronary artery without angina pectoris; I12.9 Hypertensive chronic kidney disease with stage 1 through stage 4 chronic kidney disease, or unspecified chronic kidney disease; N18.9 Chronic kidney disease, unspecified; K75.9 Inflammatory liver disease, unspecified; F17.210 Nicotine dependence, cigarettes, uncomplicated; Z86.14 Personal history of Methicillin resistant Staphylococcus aureus infection; Z86.73 Personal history of transient ischemic attack (TIA), and cerebral infarction without residual deficits; Z88.1 Allergy status to other antibiotic agents; Z88.5 Allergy status to narcotic agent; Z88.2 Allergy status to sulfonamides; Z79.82 Long term (current) use of aspirin; Z79.899 Other long term (current) drug therapy
CPT/HCPCS: 36415; 51702; 73590; 73600; 73610; 73700; 76377; 80048; 80053; 80061; 81001; 84484; 85025; 87077; 87086; 87186; 93005; 93010; 94760; 96374-59; 96376-59; 97110; 97162; 97530; 99285-25; C1713; J0690; J1100; J1170; J1650; J2250; J2370; J2405; J2704; J3010; J3370; J7120

== ENCOUNTER 2019-04-13 13:26 | Inpatient (IN) | payer OTHER ==
[~2019-04-13 13:26] MED LIST changes: +ALBU90OI INH; +Aspirin EC81 MG PO; +Duoneb 2.5-0.5 M3 ML INH
[2019-04-16] MEDS ORDERED: Nicoderm Cq1 EACH TD (12:40)
[2019-04-16] MEDS ORDERED: AMLO5 PO (12:42)
--- NOTE | 2019-04-16 12:52 | NUR ---
PT ADMITTED TO [facility] AGREES WITH PLANNED SURGERY. LUNG SOUNDS CLEAR. IN VIA W/C. ABLE TO CHANGE INDEPENDANTLY.
--- NOTE | 2019-04-16 12:55 | NUR ---
RIGHT LEG WRAPPED IN DRESSING AND EXTERNAL FIXATION IN PLACE. ELEVATED ON PILLOW.
[2019-04-16] MEDS ORDERED: BUPR75 PO (13:04)
[2019-04-16] MEDS ORDERED: ACET500 PO (13:08)
[2019-04-16] MEDS ORDERED: SENN187 PO (13:10)
[2019-04-16] MEDS ORDERED: CLIN300 PO (13:12)
--- NOTE | 2019-04-17 05:47 | NUR ---
POD 1 S/P ORIF OF RLE. PT VSS; HR SINUS 80'S PER TELE MONITOR. DRESSING CDI, RLE ELEATED IN BED. PT DENIED N/T, CAP REFILL WNL. PT ASSISTING W/REPOSITIONING IN BED, IS USING CALL LIGHT FOR ASSISTANCE, WILL CONT TO MONITOR UNTIL REP GIVEN TO ONCOMING RN,
[2019-04-17 07:16] LABS: BASOPHILS ABSOLUTE AUTO 0.05 K/mm3 (0.00-0.23); BASOPHILS PERCENT AUTO 1 % (0-2); EOSINOPHILS ABSOLUTE AUTO 0.02 K/mm3 (0.00-0.68); EOSINOPHILS PERCENT AUTO 0 % (0-6); Hematocrit 28.7 % (33.0-51.0); Hemoglobin 9.2 g/dL (11.5-16.0); IMMATURE GRAN ABSOLUTE AUTO 0.03 K/mm3 (0.00-0.10); IMMATURE GRAN PERCENT AUTO 0 % (0-1); LYMPHOCYTES ABSOLUTE AUTO 2.46 K/mm3 (0.84-5.20); LYMPHOCYTES PERCENT AUTO 24 % (21-46); MONOCYTES ABSOLUTE AUTO 0.93 K/mm3 (0.16-1.47); MONOCYTES PERCENT AUTO 9 % (4-13); Mean Corpuscular HGB 31.3 pg (26.0-34.0); Mean Corpuscular HGB Conc 32.1 g/dL (31.5-36.5); Mean Corpuscular Volume 98 fL (80-100); Mean Platelet Volume 8.9 fL (9.1-12.4); NEUTROPHILS PERCENT AUTO 66 % (41-73); Platelet Count 328 K/mm3 (150-400); RDW Coefficient Variation 15.2 % (11.7-14.2); RDW Standard Deviation 54.7 fL (35.1-46.3); Red Blood Cell Count 2.94 M/mm3 (3.80-5.20); White Blood Cell Count 10.39 K/mm3 (4.00-11.30)
--- NOTE | 2019-04-17 17:48 | NUR ---
SHIFT SUMMARY PT VOIDED VERY LARGE AMOUNT TODAY. SALINE LOCKED THIS AM. PT STATES THIS IS NORMAL FOR HER. WASN'T INTERESTED IN FOOD UNTIL THIS AFTERNOON. WORKED WITH THERAPY. ALWAYS C/O [address] CANDELARIO AWARE. HOSPITALIST WROTE TEMP ORDERS. PLAN TO RETURN TO REHAB TOMORROW.
--- NOTE | 2019-04-18 04:15 | NUR ---
SHIFT SUMMARY PT IS A/O X4. TURNS WELL IN BED FOR BEDPAN, REPOSITIONS SELF WELL. PT HAS BEEN NWB TO R LEG PER ORDERS. SPLINT / RYAN DRESSING IN PLACE. PAIN MANAGED WITH PO PAIN MEDS PER ORDERS. DISCUSSED PAIN MANAGEMENT WITH PT. ASSISTED WITH ADL'S PRN.
[2019-04-18 05:28] LABS: BASOPHILS ABSOLUTE AUTO 0.04 K/mm3 (0.00-0.23); BASOPHILS PERCENT AUTO 1 % (0-2); EOSINOPHILS ABSOLUTE AUTO 0.13 K/mm3 (0.00-0.68); EOSINOPHILS PERCENT AUTO 2 % (0-6); Hematocrit 30.8 % (33.0-51.0); IMMATURE GRAN ABSOLUTE AUTO 0.03 K/mm3 (0.00-0.10); IMMATURE GRAN PERCENT AUTO 0 % (0-1); LYMPHOCYTES ABSOLUTE AUTO 2.53 K/mm3 (0.84-5.20); LYMPHOCYTES PERCENT AUTO 33 % (21-46); MONOCYTES ABSOLUTE AUTO 0.74 K/mm3 (0.16-1.47); MONOCYTES PERCENT AUTO 10 % (4-13); Mean Corpuscular HGB 32.3 pg (26.0-34.0); Mean Corpuscular HGB Conc 32.5 g/dL (31.5-36.5); Mean Corpuscular Volume 99 fL (80-100); Mean Platelet Volume 8.6 fL (9.1-12.4); NEUTROPHILS ABSOLUTE AUTO 4.19 K/mm3 (1.96-9.15); NEUTROPHILS PERCENT AUTO 55 % (41-73); Platelet Count 340 K/mm3 (150-400); RDW Standard Deviation 54.4 fL (35.1-46.3); White Blood Cell Count 7.66 K/mm3 (4.00-11.30)
--- NOTE | 2019-04-18 12:49 | NUR ---
report phoned to jody at [facility]
--- NOTE | 2019-04-18 14:08 | NUR ---
[facility]
== END 2019-04-18 14:00 | DRG 494 ==
LOC: SURS 04-16 11:45 → PRE IP 04-16 13:30 → SURS 04-16 16:28
PROVIDERS: ADMIT Orthopaedic Surgery
PROC: 0QSJ04Z Reposition Right Fibula with Internal Fixation Device, Open Approach (ICD-10-PCS; 2019-04-16)
PROC: 0QSG04Z Reposition Right Tibia with Internal Fixation Device, Open Approach (ICD-10-PCS; principal; 2019-04-16 13:30)
DX: S82.251A Displaced comminuted fracture of shaft of right tibia, initial encounter for closed fracture (principal); S82.451A Displaced comminuted fracture of shaft of right fibula, initial encounter for closed fracture; E78.5 Hyperlipidemia, unspecified; I25.10 Atherosclerotic heart disease of native coronary artery without angina pectoris; I12.9 Hypertensive chronic kidney disease with stage 1 through stage 4 chronic kidney disease, or unspecified chronic kidney disease; N18.9 Chronic kidney disease, unspecified; I71.4 Abdominal aortic aneurysm, without rupture; M79.7 Fibromyalgia; G25.81 Restless legs syndrome; R00.1 Bradycardia, unspecified; J44.9 Chronic obstructive pulmonary disease, unspecified; F17.200 Nicotine dependence, unspecified, uncomplicated; W19.XXXA Unspecified fall, initial encounter; Z88.1 Allergy status to other antibiotic agents; Z88.5 Allergy status to narcotic agent; Z88.2 Allergy status to sulfonamides; Z79.82 Long term (current) use of aspirin; Z79.899 Other long term (current) drug therapy
CPT/HCPCS: 36415; 85025; 97110; 97162; 97530; C1713; J0690; J1100; J1170; J2250; J2370; J2405; J2704; J3010; J3370; J7030; J7120

== ENCOUNTER → 2019-05-17 | Outpatient (CLI) | payer OTHER ==
[~2019-05-17] MED LIST changes: +ACET500 PO; +BUPR75 PO; +CLIN300 PO; +Nicoderm Cq1 EACH TD; +SENN187 PO
[2019-05-17 06:23] LABS: Albumin, Blood 3.3 g/dL (3.4-5.0); Albumin/Globulin Ratio 1.1 (0.8-1.8); Bilirubin, Total 0.2 mg/dL (0.1-1.0); Bun/Creatinine Ratio 29.7 (12.0-20.0); Calcium, Blood 8.9 mg/dL (8.5-10.1); Creatinine, Blood 1.01 mg/dL (0.40-1.00); Globulin, Blood 2.9 g/dL (2.2-4.0); Potassium, Blood 4.3 mmol/L (3.5-5.5); Total Protein, Blood 6.2 g/dL (6.4-8.2)
== END | disposition home or self-care (01) ==
LOC: LAB UVN 05:48 → EDSTATUS 10:46
PROVIDERS: Family Medicine
DX: I10 Essential (primary) hypertension (principal); Z79.899 Other long term (current) drug therapy
CPT/HCPCS: 80053

== ENCOUNTER → 2019-07-28 | Outpatient (CLI) | payer OTHER ==
[2019-07-28 06:46] LABS: Hematocrit 34.6 % (33.0-51.0); Hemoglobin 10.8 g/dL (11.5-16.0); Mean Corpuscular HGB 27.8 pg (26.0-34.0); Mean Corpuscular HGB Conc 31.2 g/dL (31.5-36.5); Mean Corpuscular Volume 89 fL (80-100); Mean Platelet Volume 8.9 fL (9.1-12.4); Platelet Count 219 K/mm3 (150-400); Red Blood Cell Count 3.88 M/mm3 (3.80-5.20)
[2019-07-28 06:52] LABS: Bun/Creatinine Ratio 17.2 (12.0-20.0); Calcium, Blood 8.6 mg/dL (8.5-10.1); Creatinine, Blood 1.16 mg/dL (0.40-1.00); Potassium, Blood 4.2 mmol/L (3.5-5.5)
== END | disposition home or self-care (01) ==
LOC: LAB UVN 06:33 → EDSTATUS 08:26
PROVIDERS: Nurse Practitioner Adult Health
DX: R06.02 Shortness of breath (principal)
CPT/HCPCS: 80048; 85027